=== PATIENT | male | born 1985 | race Caucasian/White ===

== ENCOUNTER 2016-05-29 06:23 | Emergency (ER) | payer SELFPAY ==
[~2016-05-29] VITALS: Ht 180.3 cm; Wt 90.7 kg
[2016-05-29 06:25] VITALS: BP 136/81; PULSE 81; RESP 17; TEMP 98; O2SAT 100
--- NOTE | 2016-05-29 06:25 | NUR ---
Patient to ER bed 4 to gown for evaluation. Side rails up.
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
--- NOTE | 2016-05-29 06:27 | NUR ---
ER at bedside examining patient.
[2016-05-29 07:06] VITALS: BP 132/82; PULSE 88; RESP 20; TEMP 97.8; O2SAT 100
--- NOTE | 2016-05-29 07:06 | NUR ---
Patient given written and verbal discharge instructions and verbalizes understanding. ER MD discussed with patient the results and treatment provided. Patient in stable condition. ID arm band removed. Patient educated on pain management and to follow up with PMD. Pain Scale 3/10, tolerable. Opportunity for questions provided and answered.
== END 2016-05-29 07:06 ==
LOC: SED 06:23
DX: S62.326A Displaced fracture of shaft of fifth metacarpal bone, right hand, initial encounter for closed fracture (principal); F10.229 Alcohol dependence with intoxication, unspecified; F17.200 Nicotine dependence, unspecified, uncomplicated; Z82.49 Family history of ischemic heart disease and other diseases of the circulatory system; V89.2XXA Person injured in unspecified motor-vehicle accident, traffic, initial encounter; Y93.89 Activity, other specified; Y99.8 Other external cause status; Y92.89 Other specified places as the place of occurrence of the external cause
CPT/HCPCS: 99284